=== PATIENT | male | born 1950 | race Caucasian/White ===

== ENCOUNTER 2016-06-14 10:30 | Outpatient (CLI) | payer MEDICARE, OTHER | END 2016-06-14 10:31 | disposition home or self-care (01) | DX: G47.33 Obstructive sleep apnea (adult) (pediatric) (principal); G47.09 Other insomnia | CPT/HCPCS: 99213; G0463 ==

== ENCOUNTER 2016-07-12 10:21 | Outpatient (CLI) | payer MEDICARE, OTHER | END 2016-07-12 10:22 | disposition home or self-care (01) | DX: G47.33 Obstructive sleep apnea (adult) (pediatric) (principal); G47.00 Insomnia, unspecified; G25.81 Restless legs syndrome | CPT/HCPCS: 99214; G0463 ==

== ENCOUNTER 2016-09-03 08:00 | Outpatient (CLI) | payer MEDICARE, OTHER | END 2016-09-03 08:01 | disposition home or self-care (01) | DX: N39.0 Urinary tract infection, site not specified (principal) ==

== ENCOUNTER 2016-09-29 16:45 | Outpatient (CLI) | payer MEDICARE, OTHER | END 2016-09-29 16:46 | DX: N39.0 Urinary tract infection, site not specified (principal); M54.5 Low back pain ==